=== PATIENT | female | born 1985 | race Caucasian/White ===

== ENCOUNTER → 2017-09-05 | Outpatient (CLI) | payer OTHER ==
[~2017-09-05] MED LIST: IBUPROFEN 600600 M1 PO; NOHOMEMEDICATIONS; ZOFRAN 4 MG ORAL4 MG PO; birth control
--- NOTE | 2017-09-05 15:30 | 2DMMODE ---
[place] [address] 2 D/M-MODE ECHOCARDIOGRAM Name: BHAVNA WAITE [id number] Admission: 09/05/17 Attend Phys: RICHARD Wellington Discharge: Date of : 81 Date of Service: 09/05/17 1530 Report #: [id number] THIS REPORT FOR: //name// APPROVED REPORT Study performed: 09/05/2017 14:44:33 EXAM: Comprehensive 2D, Doppler, and color-flow Echocardiogram Patient Location: Out-Patient BSA: 1.59 HR: 64 bpm BP: 108/78 mmHg Other Information Study Quality: Good Indications Palpitations 2D Dimensions LVEF(%): 69.89 (>50%) IVSd: 8.41 (7-11mm) LVOT Diam: 22.72 (18-24mm) LVDd: 38.83 mm PWd: 8.01 (7-11mm) Ascending Ao: 25.38 (22-36mm) LVDs: 23.75 (25-40mm) Aortic Root: 27.06 mm Heredia's LVEF: 69.89 % Volumes Left Atrial Volume (Systole) LA ESV Index: 22.70 mL/m2 Aortic Valve AoV Peak Jovon.: 0.85 m/s AO Peak Gr.: 2.86 mmHg LVOT Max P.06 mmHg AO Mean Gr.: 1.62 mmHg LVOT Mean P.92 mmHg LVOT Max V: 0.72 m/s AO V2 VTI: 17.80 cm LVOT Mean V: 0.43 m/s ARIES (VTI): 3.32 cm2 LVOT V1 VTI: 14.59 cm Mitral Valve E/A Ratio: 1.63 MV Decel. Time: 198.91 ms MV E Max Jovon.: 0.62 m/[place] [address] 2 D/M-MODE ECHOCARDIOGRAM Name: BHAVNA WAITE [facility]: [facility]#: [id number] Admission: 09/05/17 Attend Phys: RICHARD Wellington Discharge: Date of : 81 Date of Service: 09/05/17 1530 Report #: [id number] MV PHT: 57.68 ms MVA (PHT): 3.81 cm2 TDI E/Lateral E': 4.43 E/Medial E': 3.65 Medial E' Jovon.: 0.17 m/s Lateral E' Jovon.: 0.14 m/s Pulmonary Valve PV Peak Jovon.: 0.72 m/s PV Peak Gr.: 2.05 mmHg Tricuspid Valve RAP Estimate: 5.00 mmHg TR Peak Gr.: 4.80 mmHg RVSP: 9.80 mmHg PA Pressure: 9.80 mmHg Left Ventricle The left ventricle is normal size. There is normal LV segmental wall motion. There is normal left ventricular wall thickness. Left ventricular systolic function is normal. The left ventricular ejection fraction is within the normal range. LVEF is 60%. The left ventricular diastolic function is normal. Right Ventricle The right ventricle is normal size. The right ventricular systolic function is normal. Atria The left atrium size is normal. The right atrium size is normal. Aortic Valve The aortic valve is normal in structure. No aortic regurgitation is present. There is no aortic valvular stenosis. Mitral Valve The mitral valve is normal in structure. Trace mitral regurgitation. No evidence of mitral valve stenosis. Tricuspid Valve The tricuspid valve is normal in structure. Trace tricuspid regurgitation. Pulmonic Valve The pulmonary valve is normal in structure. There is no [place] [address] 2 D/M-MODE ECHOCARDIOGRAM Name: BHAVNA WAITE Velma [id number] Admission: 09/05/17 Attend Phys: RICHARD Wellington Discharge: Date of : 81 Date of Service: 09/05/17 1530 Report #: [id number] Great Vessels The aortic root is normal in size. IVC is normal in size and collapses with >50% inspiration Pericardium There is no pericardial effusion. <Conclusion> The left ventricle is normal size. There is normal left ventricular wall thickness. Left ventricular systolic function is normal. The left ventricular ejection fraction is within the normal range. LVEF is 60%. The left ventricular diastolic function is normal. The right ventricle is normal size. The left atrium size is normal. The aortic valve is normal in structure. The mitral valve is normal in structure. Trace mitral regurgitation. The tricuspid valve is normal in structure. IVC is normal in size and collapses with >50% inspiration There is no pericardial effusion. There is normal LV segmental wall motion. <ELECTRONICALLY SIGNED> By: Julio Laughlin MD, FACC 09/05/17 [phone] Julio Laughlin MD, FACC /INF
== END ==
LOC: M.CRD 14:00
DX: R00.2 Palpitations (principal); R07.9 Chest pain, unspecified